=== PATIENT | female | born 1960 | race Caucasian/White ===

== ENCOUNTER 2016-08-26 08:27 | Day surgery (SDC) | payer OTHER ==
[2016-08-22 08:17] VITALS: BMI 31.9
--- NOTE | 2016-08-26 11:11 | PCM.SURG1 ---
Surgeon's Initial Post Op Note - Surgeon's Notes Surgeon: Bruce Lindo MD Senior Revenue Accountant: NONE Type of Anesthesia: Local Pre-Operative Diagnosis: Thyroid nodule Operative Findings: 3.8 cm complex solid right thyroid nodule Post-Operative Diagnosis: Thyroid nodule Operation Performed: US guided FNA of right thyroid nodule. Specimen/Specimens Removed: 25 g FNA x 4 passes Estimated Blood Loss: EBL {In ML}: 0 Blood Products Given: N/A Drains Used: No Drains Post-Op Condition: Fair Date of Surgery/Procedure: 08/26/16 Time of Surgery/Procedure: 11:00
--- NOTE | 2016-08-26 11:12 | CP.SDSHP ---
Same Day Surgery H & P - History Proposed Procedure: US guided FNA of right thyroid nodule Pre-Op Diagnosis: Thyroid nodule - Allergies Allergies: Allergies No Known Allergies Allergy (Verified 09/05/15 11:39) - Physical Exam Vital Signs: Vital Signs 08/26/16 08:51 Temperature 97.6 F Pulse Rate 72 Respiratory 20 Rate Blood Pressure 137/90 O2 Sat by Pulse 100 Oximetry Mental Status: Alert & Oriented x3 Neuro: WNL Heart: WNL Lungs: WNL - Impression Impression: Pt with right thyroid nodule referred for US guided FNA. Pt. Evaluated Today:Candidate for Anesthesia & Procedure: No - Date & Time Date: 08/26/16 Time: 10:45 Short Stay Discharge - Short Stay Discharge Admitting Diagnosis/Reason for Visit: THYROID NODULE Disposition: HOME/ ROUTINE
[2016-08-26 11:33] VITALS: BP 123/81; PULSE 74; RESP 16; TEMP 97.4; O2SAT 97
--- NOTE | 2016-08-26 11:49 | US ---
PROCEDURE: Date of Procedure: 08/26/2016 PROCEDURE: 1. Ultrasound guided FNA of right thyroid nodule, CPT 66317 2. Ultrasound guidance for FNA, 99204 Medications: 1% Lidocaine HISTORY: Enlarged right thyroid nodule. TECHNIQUE: Following informed consent and procedure time-out, a limited ultrasound patient's neck confirmed the presence of a 3.8 cm complex right thyroid nodule which is predominantly solid. After the patient's neck was prepped and draped in the usual sterile fashion, the skin was anesthetized with 1% lidocaine. Ultrasound-guided fine needle aspiration was then performed of the dominant right thyroid nodule. A total of 4 passes were made into the nodule with 25 gauge needle under ultrasound guidance. The FNA specimen was sent for routine pathology. Post biopsy ultrasound showed no hematoma. IMPRESSION: Ultrasound-guided FNA of the dominant right thyroid nodule.
== END 2016-08-26 11:40 | disposition home or self-care (01) ==
LOC: C.SPRAD 08:27
PROVIDERS: ATTEND Radiology Vascular & Interventional Radiology
DX: E04.1 Nontoxic single thyroid nodule (principal)

== ENCOUNTER 2017-09-03 10:22 | Emergency (ER) | payer OTHER ==
--- NOTE | 2017-09-03 11:02 | C.PDOC ---
History Of Present Illness Patient c/o epigastric and RUQ abdominal pain, radiating to the right low back x 1 month. Patient sts pain is getting worse after meal. Patient denies nausea/ vomiting/diarrhea/fever. Patient sts she was seen by her PMD who referred her to GI, but she was not able to go secondary to insurance problems. Time Seen by Provider: 09/03/17 10:42 History Per: Patient Onset/Duration Of Symptoms: Other (1 month) Current Symptoms Are (Timing): Still Present Context: Food Location Of Pain/Discomfort: RUQ, Epigastric Radiation Of Pain To:: Back Quality Of Discomfort: Gas, Other (bloating sensation) Associated Symptoms: denies: Fever, Chills, Nausea, Vomiting, Diarrhea, Loss Of Appetite, Constipation, Urinary Symptoms Exacerbating Factors: Food Alleviating Factors: None Past Medical History Reviewed: Historical Data, Nursing Documentation, Vital Signs Vital Signs: Last Vital Signs Temp 97.9 F 09/03/17 14:25 Pulse 74 09/03/17 14:25 Resp 18 09/03/17 14:25 BP 133/82 09/03/17 14:25 Pulse Ox 97 09/03/17 14:25 - Medical History PMH: Back Problems Surgical History: Cholecystectomy, Tonsillectomy Family History: States: Unknown Family Hx - Social History Hx Tobacco Use: No Hx Alcohol Use: No - Immunization History Hx Tetanus Toxoid Vaccination: Yes Hx Influenza Vaccination: Yes Hx Pneumococcal Vaccination: Yes Review Of Systems Except As Marked, All Systems Reviewed And Found Negative. Physical Exam - Physical Exam Appears: Well, Non-toxic, No Acute Distress Skin: Normal Color, Warm, No Diaphoretic Head: Atraumatic, Normacephalic Eye(s): bilateral: Normal Inspection Neck: Normal, Normal ROM Chest: Symmetrical, No Tenderness Cardiovascular: Rhythm Regular Respiratory: Normal Breath Sounds, No Rales, No Rhonchi, No Wheezing Gastrointestinal/Abdominal: Soft, Tenderness (epigastric and RUQ), No Distention , No Guarding, No Rebound Back: Normal Inspection, No Vertebral Tenderness Extremity: Normal ROM, No Tenderness Neurological/Psych: Oriented x3, Normal Speech, Normal Cognition ED Course And Treatment - Laboratory Results Result Diagrams: 09/03/17 11:25 09/03/17 11:25 - CT Scan/US RUQ US Other Rad Studies (CT/US): Read By Radiologist, Radiology Report Reviewed CT/US Interpretation: Accession No. : [id number]. Patient Name / ID : SAMRA Rincon / [id number]. Exam Date : 09/03/2017 11:38:09 ( Approved ). Study Comment : Sex / Age : F / 57Y. Creator : Bowen Hanson MD. Dictator : Bowen Hanson MD. Chicken Catcher : Otr Van Cdl Truck Driver : Bowen Hanson MD. Approver2 : Report Date : 09/03/2017 13:24:35. My Comment : . HISTORY: epigastric/ RUQ abd pain. COMPARISON: None. TECHNIQUE: Sonographic evaluation of the right upper quadrant of the abdomen. FINDINGS: LIVER: Measures 16.9 cm in length. Increased echogenicity of the liver parenchyma. No mass. No intrahepatic bile duct dilatation. GALLBLADDER: Contracted gallbladder containing a few gallstones. Sonographic Seay's sign was not elicited. COMMON BILE DUCT: Measures 5 mm. No stones. No dilatation. PANCREAS: Unremarkable as visualized. No mass. No ductal dilatation. RIGHT KIDNEY: Measures 9.6 x 4.7 x 5.4 cm in length. Normal echogenicity. No calculus, mass, or hydronephrosis. AORTA: No aneurysmal dilatation. IVC: Unremarkable. OTHER FINDINGS: None . IMPRESSION: Hepatic steatosis. Cholelithiasis without sonographic evidence of acute cholecystitis. Progress Note: Plan: CBC, CMP, Lipase, UA, RUQ US, IVF, Toradol IV, Protonix IV. On re-evaluation patient feels better, in no distress, tolerates po. She is stable to be d/c home with PMD and General surgeon follow up. Disposition - Disposition Referrals: Denisse Parrish MD [Staff Provider] - Disposition: HOME/ ROUTINE Disposition Time: 14:14 Condition: STABLE Additional Instructions: Follow up with General manager surgery within 2-3 days. Return to ED if feel worse. Instructions: Gallstones (DC) Print Language: INDONESIAN - Clinical Impression Clinical Impression: Cholelithiasis
[2017-09-03 11:28] LABS: BASO # 0.1 K/uL (0.0-0.2); BASO % 1.1 % (0.0-2.0); EOS # 0.2 K/uL (0.0-0.7); EOS % 2.6 % (0.0-4.0); HEMOGLOBIN 12.8 g/dL (11.0-16.0); LYMPH # 3.4 K/uL (1.0-4.3); MEAN CELL VOLUME 82.1 fL (81.0-99.0); MEAN CORPUSCULAR HGB CONC 34.1 g/dL (33.0-37.0); MEAN PLATELET VOLUME 8.2 fL (7.2-11.7); MONO # 0.5 K/uL (0.0-0.8); MONO % 6.4 % (0.0-10.0); NEUT % 48.9 % (50.0-75.0); NRBC % 0.1 % (0.0-2.0); RBC 4.56 Mil/uL (3.80-5.20); RED CELL DISTRIBUTION WIDTH 14.3 % (11.5-14.5); WHITE BLOOD COUNT 8.2 K/uL (4.8-10.8)
[2017-09-03 11:37] LABS: SQUAMOUS EPITHIAL 4 /hpf (0-5); URINE BACTERIA OCC (<OCC); URINE BILIRUBIN NEGATIVE (NEGATIVE); URINE BLOOD NEGATIVE (NEGATIVE); URINE CLARITY Clear (Clear); URINE COLOR Yellow (YELLOW); URINE GLUCOSE (UA) NORMAL (Normal); URINE LEUKOCYTE ESTERASE NEG Leu/uL (Negative); URINE PROTEIN NEGATIVE (NEGATIVE); URINE UROBILINOGEN NORMAL mg/dL (0.2-1.0)
[2017-09-03 11:42] LABS: ALB/GLOB RATIO 1.5 (1.0-2.1); ALBUMIN 4.2 g/dL (3.5-5.0); ALT/SGPT 30 U/L (9-52); AST/SGOT 27 U/L (14-36); BLOOD UREA NITROGEN 13 mg/dL (7-17); CALCIUM 8.7 mg/dl (8.6-10.4); GFR AFRICAN-AMERICAN > 60; GFR NON-AFRICAN AMERICAN > 60; LIPASE 88 U/L (23-300)
[2017-09-03 11:46] VITALS: RESP 18; O2SAT 97; BMI 33.9
[2017-09-03] MEDS ORDERED: Sodium Chloride 0.9% 1,000 ML IV STA (12:10)
--- NOTE | 2017-09-03 13:26 | US ---
HISTORY: epigastric/ RUQ abd pain COMPARISON: None. TECHNIQUE: Sonographic evaluation of the right upper quadrant of the abdomen. FINDINGS: LIVER: Measures 16.9 cm in length. Increased echogenicity of the liver parenchyma. No mass. No intrahepatic bile duct dilatation. GALLBLADDER: Contracted gallbladder containing a few gallstones. Sonographic Seay's sign was not elicited. COMMON BILE DUCT: Measures 5 mm. No stones. No dilatation. PANCREAS: Unremarkable as visualized. No mass. No ductal dilatation. RIGHT KIDNEY: Measures 9.6 x 4.7 x 5.4 cm in length. Normal echogenicity. No calculus, mass, or hydronephrosis. AORTA: No aneurysmal dilatation. IVC: Unremarkable. OTHER FINDINGS: None . IMPRESSION: Hepatic steatosis. Cholelithiasis without sonographic evidence of acute cholecystitis.
[2017-09-03 14:32] VITALS: BP 133/82; PULSE 74; TEMP 97.9
== END 2017-09-03 14:25 | disposition home or self-care (01) ==
LOC: C.ER 10:22
DX: K80.20 Calculus of gallbladder without cholecystitis without obstruction (principal)
CPT/HCPCS: 76705; 80053; 81001; 83690; 85025; 96361; 96374; 96375; 99284; C9113; J1885; J7040

== ENCOUNTER 2018-09-09 10:04 | Outpatient (CLI) | payer OTHER | END 2018-09-09 10:05 | disposition home or self-care (01) | LOC: C.CTH 10:04 ==